=== PATIENT | female | born 2000 | race Two or more races ===

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

== ENCOUNTER → 2023-02-25 | Outpatient (REF) | payer BC, OTHER | LOC: M SFHCWAGY 13:15 | PROVIDERS: ATTEND Obstetrics & Gynecology | DX: Z01.419 Encounter for gynecological examination (general) (routine) without abnormal findings (principal) ==